=== PATIENT | female | born 1995 | race Caucasian/White ===

== ENCOUNTER 2018-12-06 20:17 | Emergency (ER) | payer MEDICAID ==
[2018-12-06] MEDS ORDERED: Dexamethasone 4 MG/ML SDV IM ONE (21:05)
--- NOTE | 2018-12-06 21:09 | EDM.PDOC ---
ED HPI GENERAL MEDICAL PROBLEM - General Chief Complaint: ENT Problem Stated Complaint: PAIN TONSILLECTOMY 12/04 Time Seen by Provider: 12/06/18 21:00 Source of Information: Reports: Patient History Limitations: Reports: No Limitations - History of Present Illness INITIAL COMMENTS - FREE TEXT/NARRATIVE: Silvia is a 23 year old female, presents with intractable sore throat s/p tonsillectomy on 12/04 unrelieved with Lortab elixir. Patient denies any fever, on amoxicillin. Patient has been drinking fluids, painful to do so, no bleeding. Patient reports swallowing makes pain worse. Patient denies any other concerns. throat due to tonsills removed Pain Score (Numeric/FACES): 8 - Related Data Allergies Allergy/AdvReac Type Severity Reaction Status Date / Time No Known Allergies Allergy Verified 12/06/18 20:53 Home Meds: Home Meds Amoxicillin [Amoxil 250 MG/5 ML Susp] 10 ml PO TID 12/06/18 [History] Past Medical History HEENT History: Reports: Impaired Vision - Past Surgical History HEENT Surgical History: Reports: Adenoidectomy, Tonsillectomy Social & Family History - Tobacco Use Smoking Status *Q: Never Smoker - Caffeine Use Caffeine Use: Reports: None - Recreational Drug Use Recreational Drug Use: No ED ROS ENT - Review of Systems Review Of Systems: ROS reveals no pertinent complaints other than HPI. ED EXAM, ENT - Physical Exam Exam: See Below Exam Limited By: Uncooperative General Appearance: WD/WN, No Apparent Distress Mouth/Throat: Other (injected posterior oropharynx with white scabs present, no abscess formation, uvula midline) Neck: Normal Inspection, Supple, Non-Tender, Lymphadenopathy (R) (plus 2 anterior cervical bilateral), Lymphadenopathy (L) Respiratory/Chest: No Respiratory Distress, Lungs Clear Cardiovascular: Regular Rate, Rhythm Extremities: Normal Inspection Neurological: Alert, Oriented, CN II-XII Intact Psychiatric: Normal Affect, Normal Mood Skin: Warm, Dry, Intact Course - Vital Signs Last Recorded V/S: Last Vital Signs Temp 36.0 C 12/06/18 20:53 Pulse 72 12/06/18 20:53 Resp 16 12/06/18 20:53 BP 134/50 L 12/06/18 20:53 Pulse Ox 99 12/06/18 20:53 Silvia is a 23 year old female who presents to the Ed today with c/o throat pain s/p tonsillectomy. Please refer to HPI and focused exam. Patient has post operative findings consistent with tonsillectomy, no acute focal infection. Patient afebrile here. Will transition her to Percocet, patient instructed to stop the Lortab, narcotic safety discussed in detail. Continue amoxicillin as prescribed. Fluids encouraged. Patient given a shot of Decadron here for swelling/inflammation. work note provided, reasons to return to the Ed discussed, patient agreeable and discharged in stable condition. - Orders/Labs/Meds Meds: Medications Discontinued Medications Generic Name Dose Route Start Last Admin Trade Name Freq PRN Reason Stop Dose Admin Dexamethasone 10 mg 12/06/18 21:05 Dexamethasone IM 12/06/18 21:06 ONETIME ONE Departure - Departure Time of Disposition: 21:30 Disposition: Home, Self-Care 01 Clinical Impression: Throat pain in adult, S/P tonsillectomy - Discharge Information Instructions: Tonsillectomy, Adult, Care After, Sore Throat, [id number] Referrals: PCP,None [Primary Care Provider] - Forms: ED Department Discharge Additional Instructions: You can take the Percocet for pain as prescribed, do not take the Lortab elixir with this, these are both narcotics. The Percocet does have Tylenol/ Acetaminophen in it, you should not take more than 4,000 mg of Acetaminophen from all sources in a 24 hour period. You can crush the Percocet and mix with apple sauce/yogurt. Make sure you are staying well hydrated, plenty of fluids, cold liquids. Finish Amoxicillin as prescribed by ENT surgeon. Return here with any complications or worsening symptoms.
[2018-12-06] MEDS ORDERED: Acetaminophen/oxyCODONE 325-5 MG Tab PO ONE (21:47)
== END 2018-12-06 21:30 | disposition home or self-care (01) ==
LOC: JP.ED 20:17
DX: R07.0 Pain in throat (principal); Z98.890 Other specified postprocedural states
CPT/HCPCS: 96372; 99282; A9270; J1100